=== PATIENT | female | born 1965 | race Caucasian/White ===

== ENCOUNTER 2022-09-11 13:07 | Emergency (ER) | payer OTHER ==
[~2022-09-11] VITALS: Ht 157.5 cm; Wt 54.4 kg
== END 2022-09-11 18:33 | disposition home or self-care (01) ==
LOC: ER 13:07
DX: R21 Rash and other nonspecific skin eruption (principal)

== ENCOUNTER 2025-09-03 09:48 | Inpatient (IN) | payer OTHER ==
[~2025-09-03] VITALS: Ht 154.9 cm; Wt 70.3 kg
[2025-09-03] MEDS ORDERED: [UNRECOGNIZED DRUG - OTHER] PO (10:27)
[2025-09-03] MEDS ORDERED: 0.9 % SODIUM CHLORIDE 1,000 ML IV STA (10:47)
[2025-09-03 11:31] LABS: BASO % 0.3 % (0.1-1.2); EOS # 0.04 (0.04-0.54); EOS % 0.2 % (0.7-7.0); LYMPH # 1.93 (1.18-3.74); LYMPH % 7.8 % (19.3-53.1); MEAN PLATELET VOLUME 11.00 fl (9.4-12.4); MONO # 1.56 (0.24-0.82); MONO % 6.3 % (4.7-12.5); NEUT # 21.00 (1.56-6.13); NEUT % 84.8 % (34.0-71.1); RED CELL DISTRIBUTION WIDTH 13.1 % (11.6-14.4)
[2025-09-03 12:08] LABS: INR 1.04
[2025-09-03 12:12] LABS: ALT/SGPT 66.0 U/L (12-78); AST/SGOT 27.0 U/L (15-37); BILIRUBIN TOTAL 0.95 mg/dL (0.3-1.2); BUN CREA RATIO 19.0 (7.0-25.0); CREATININE SERUM 0.63 mg/dL (0.55-1.02); GFR 97.06; GLOBULINA 4.0 G/DL (2.4-3.5); GLUCOSE FASTING 125.0 mg/dL (65-100); OSMOLALITY SERUM 279.0 MOSM/KG (275-295)
[2025-09-03] MEDS ORDERED: TRAMADOL HCL 50 MG TABLET PO STA (13:24)
[2025-09-03] MEDS ORDERED: METRONIDAZOLE/SODIUM CHLORIDE 500 MG/100 ML PIGGYBACK IV STA (13:26)
[2025-09-03] MEDS ORDERED: CIPROFLOXACIN IN 5 % DEXTROSE 400 MG/200 ML PIGGYBAG IV STA (13:27)
[2025-09-03] MEDS ORDERED: CIPROFLOXACIN IN 5 % DEXTROSE 400 MG/200 ML PIGGYBAG IV ONE (13:34)
[2025-09-03] MEDS ORDERED: METRONIDAZOLE/SODIUM CHLORIDE 500 MG/100 ML PIGGYBACK IV ONE (13:34)
[2025-09-03] MEDS ORDERED: PANTOPRAZOLE SODIUM 40 MG/VIAL VIAL IV PUSH SCH (20:26)
[2025-09-03] MEDS ORDERED: RINGERS SOLUTION,LACTATED 1,000 ML IV SCH (20:30)
[2025-09-03] MEDS ORDERED: ACETAMINOPHEN 325 MG TABLET PO PRN (20:30)
[2025-09-03] MEDS ORDERED: ONDANSETRON HCL 4 MG in 0.9 % SODIUM CHLORIDE 50 ML IV PRN (20:30)
[2025-09-03] MEDS ORDERED: CIPROFLOXACIN IN 5 % DEXTROSE 200 ML IV SCH (21:00)
[2025-09-03] MEDS ORDERED: MORPHINE SULFATE 2 MG/ML SYRINGE IV PRN (21:15)
[2025-09-04] VITALS (9 sets, daily range): BP systolic 95–101; BP diastolic 59–68; O2SAT 96–98
[2025-09-04] MEDS ORDERED: METRONIDAZOLE/SODIUM CHLORIDE 500 MG/100 ML PIGGYBACK IV ONE (00:31)
[2025-09-04 01:35] LABS: URINE APPEARANCE Clear; URINE BILIRRUBIN Negative (NEGATIVE); URINE BLOOD Small; URINE COLOR Yellow; URINE GLUCOSE Negative (NEGATIVE); URINE LEUKOCYTE Small; URINE NITRATE Negative; URINE PROTEIN Negative (NEGATIVE); URINE UROBILINOGEN 0.2 E.U./dl
[2025-09-04 01:38] LABS: URINE BACTERIA 34.7 uL (0.0-1933); URINE CAST 2.05 uL (0.0-1.40); URINE EPITHELIAL CELLS 23.9 uL (0.0-38.8); URINE RBC 11.7 uL (0.0-20.8); URINE WBC 239.3 uL (0.0-23.2)
[2025-09-04 01:56] LABS: ob POSITIVE (NEGATIVE)
[2025-09-04 02:00] LABS: URINE KETONE 80 (NEGATIVE)
[2025-09-04 02:01] LABS: TYPE CELLS SQUAMOUS; URINE MUCUS MODERATE
[2025-09-04 06:45] LABS: BASO % 0.2 % (0.1-1.2); EOS # 0.24 (0.04-0.54); EOS % 1.6 % (0.7-7.0); LYMPH # 1.93 (1.18-3.74); LYMPH % 12.9 % (19.3-53.1); MEAN PLATELET VOLUME 11.10 fl (9.4-12.4); MONO # 0.96 (0.24-0.82); MONO % 6.4 % (4.7-12.5); NEUT # 11.76 (1.56-6.13); NEUT % 78.4 % (34.0-71.1); RED CELL DISTRIBUTION WIDTH 13.0 % (11.6-14.4)
[2025-09-04 06:50] LABS: INR 1.03
[2025-09-05] VITALS (8 sets, daily range): BP systolic 101–136; BP diastolic 56–82; O2SAT 90–99
[2025-09-05 06:34] LABS: BASO % 0.4 % (0.1-1.2); EOS # 0.30 (0.04-0.54); EOS % 3.2 % (0.7-7.0); LYMPH # 1.53 (1.18-3.74); LYMPH % 16.3 % (19.3-53.1); MEAN PLATELET VOLUME 11.50 fl (9.4-12.4); MONO # 0.72 (0.24-0.82); MONO % 7.7 % (4.7-12.5); NEUT # 6.77 (1.56-6.13); NEUT % 72.2 % (34.0-71.1); RED CELL DISTRIBUTION WIDTH 12.7 % (11.6-14.4)
[2025-09-05 06:44] LABS: ALT/SGPT 33.0 U/L (12-78); AST/SGOT 14.0 U/L (15-37); BILIRUBIN TOTAL 0.6 mg/dL (0.3-1.2); BUN CREA RATIO 18.0 (7.0-25.0); CREATININE SERUM 0.33 mg/dL (0.55-1.02); GFR 204.69; GLOBULINA 3.1 G/DL (2.4-3.5); GLUCOSE FASTING 82.0 mg/dL (65-100); OSMOLALITY SERUM 278.0 MOSM/KG (275-295)
[2025-09-05] MEDS ORDERED: LACTOBACILLUS ACIDOPHILUS 1 CAP CAP PO SCH (09:00)
[2025-09-05] MEDS ORDERED: PATIENTS OWN MEDICATION (MEDICAMENTO EN PISO) PO SCH (09:00)
[2025-09-06] VITALS (10 sets, daily range): BP systolic 103–119; BP diastolic 62–75; O2SAT 86–100
[2025-09-07 04:00] VITALS: O2SAT 97
[2025-09-07 08:06] VITALS: O2SAT 89
[2025-09-07 09:13] VITALS: BP 129/81; O2SAT 98
[2025-09-07 16:56] VITALS: BP 102/66; O2SAT 100
[2025-09-10 00:06] LABS: GIARDIA LAMBLIA EIA Negative (Negative)
[2025-09-15 12:10] LABS: campy Final report (.)
== END 2025-09-07 18:45 | disposition home or self-care (01) | DRG 392 ==
LOC: ER 09:48 → SURH 20:32 → SEC-K 20:32 → SURH 09-04 00:14
PROVIDERS: General Practice; ADMIT Internal Medicine; ATTEND Internal Medicine
PROC: BW21YZZ Computerized Tomography (CT Scan) of Abdomen and Pelvis using Other Contrast (ICD-10-PCS; principal; 2025-09-03)
PROC: 4A12X4Z Monitoring of Cardiac Electrical Activity, External Approach (ICD-10-PCS; 2025-09-04)
PROC: 8E0ZXY6 Isolation (ICD-10-PCS; 2025-09-04)
DX: K52.89 Other specified noninfective gastroenteritis and colitis (principal); K62.5 Hemorrhage of anus and rectum; D72.828 Other elevated white blood cell count; E03.9 Hypothyroidism, unspecified